=== PATIENT | female | born 1990 | race African-American/Black ===

== ENCOUNTER → 2018-03-13 | Day surgery (SDC) | payer OTHER ==
[~2018-03-13] VITALS: Ht 170.2 cm; Wt 80.3 kg
[~2018-03-13] MED LIST: *morphine SULFATE 4 MG/ML PERIprocedure ONLY ONE; ACETAMINOPHEN/HYDROcodone 325 MG/5 MG TAB PO PRN; BUPIVACAINE/EPINEPHRINE 0.5% PF 30 ML VIAL ONE; CHLORHEXIDINE GLUCONATE 2 % 1 PACK (2 CLOTHS) TOPICAL PRN; DEXAMETHASONE SOD PHOS 4 MG/ML VIAL IV ONE; DO NOT ADM ANY ANTICOAGULANT DRUGS PRN; LACTATED RINGER'S 1000 ML IV PRN; LIDOCAINE HCL 1% PF 5 ML SYRINGE OTHER ONE; METOPROLOL TARTRATE 25 MG TAB PO PRN; MIDAZOLAM HCL 2 MG/2 ML VIAL ONE; ONDANSETRON HCL 4 MG/2 ML VIAL IV ONE; POVIDONE IODINE 5% (ANTISEPSIS KIT) 4 APPLICATIONS EACH NARE PRN; PROPOFOL 200 MG/20 ML AMP IV ONE; SODIUM CHLORID 0.9% 500 ML IV PRN; SUCCINYLCHOLINE CHLORIDE 100 MG/5 ML SYRINGE IV PUSH ONE; [UNRECOGNIZED DRUG - CODE] PO
[2018-03-13 09:58] LABS: AUTOMATED NEUTROPHIL # 2.3 TH/MM3 (1.8-7.7); BASOPHIL # 0.1 TH/MM3 (0-0.2); BASOPHIL % 1.1 % (0.0-2.0); EOSINOPHIL # 0.3 TH/MM3 (0-0.4); EOSINOPHIL % 6.3 % (0.0-4.0); HEMATOCRIT 39.9 % (35.0-46.0); HEMOGLOBIN 13.1 GM/DL (11.6-15.3); LYMPH % 41.3 % (9.0-44.0); LYMPHOCYTE # 2.2 TH/MM3 (1.0-4.8); MEAN CELL VOLUME 78.9 FL (80.0-100.0); MEAN CORPUSCULAR HEMOGLOBIN 25.8 PG (27.0-34.0); MEAN CORPUSCULAR HGB CONC 32.7 % (32.0-36.0); MEAN PLATELET VOLUME 8.5 FL (7.0-11.0); MONOCYTE # 0.4 TH/MM3 (0-0.9); NEUT % 43.3 % (16.0-70.0); PLATELET COUNT 304 TH/MM3 (150-450); RED BLOOD COUNT 5.06 MIL/MM3 (4.00-5.30); WHITE BLOOD COUNT 5.3 TH/MM3 (4.0-11.0)
[2018-03-13 10:07] LABS: CALCIUM 8.9 MG/DL (8.5-10.1)
--- NOTE | 2018-03-13 13:10 | HHI.PR ---
cc: Celestine Martinez MD Immediate Post Op Note Procedure Date: Mar 13, 2018 Pre Op Diagnosis: (1) Thyroid cancer (2) Papillary thyroid carcinoma Post Op Diagnosis: (1) Status post thyroidectomy (2) Thyroid cancer (3) Papillary thyroid carcinoma Surgeon: Celestine Martinez Curtain Cleaner(s): Dr. Jadon Teixeira Procedure: Total thyroidectomy with neuro monitoring Findings: Nodule left thyroid No apparent Complications: None Specimen(s) removed: Thyroid suture marked the left superior lobe Anesthesia: General Drains: None IVF Patient to: PACU Patient Condition: Good Implant/Devices: SEE IMPLANT LOG (if applicable) Date/Time of Procedure: SEE SURGICAL CARE RECORD Celestine Martinez MD Mar 13, 2018 13:10
[2018-03-13 14:44] VITALS: BP 145/84; PULSE 70; RESP 14; TEMP 98.1; O2SAT 97
--- NOTE | 2018-03-13 15:54 | MP ---
cc: Celestine Martinez MD, Lee MD DATE OF OPERATION: 03/13/2018 PREOPERATIVE DIAGNOSIS: Thyroid malignancy, left lobe. POSTOPERATIVE DIAGNOSIS: Thyroid malignancy, left lobe. PROCEDURE: Total thyroidectomy. ANESTHESIA: General. SURGEON: Celestine Martinez MD SURGEON: Jadon Teixeira MD INDICATIONS: This is a 28-year-old female who noted a big mass in the left thyroid gland. This was biopsied, was highly suspicious for a papillary carcinoma. Plans were made for the above. PROCEDURE: The patient was taken to the operating room and placed in supine position after anesthesia. Her neck is prepped with Betadine. Timeout is done. We make a curvilinear incision about 2.5 cm above the sternal notch, dissect through the deep subcutaneous tissue, identifying the platysma muscle, which is divided using electrocautery device. We then create flaps superiorly and inferiorly. The Miladys retractor was then placed. We were able to get to the strap muscles in the midline and separate the strap muscles in a lateral direction. We then direct our attention to the right side. She has a small lobe and the middle thyroidal vein is taken down with the harmonic scalpel. The superior thyroidal vessels are taken down with the harmonic scalpel and the inferior thyroidal vessels. We are able to tease this off the surrounding tissue up to the trachea where we are able to identify the recurrent laryngeal nerve visually and with the neural monitor. The thyroid was then carefully teased off the trachea using blunt dissection and electrocautery device and the harmonic scalpel. Once we get to the midline of the trachea, we turn our attention to the left side. On the left side, there was a palpable nodule and the superior gland is easily palpable. We take the middle thyroidal vessels down with harmonic scalpel, the inferior thyroidal vessels down with the harmonic scalpel and the superior thyroidal vessels down with the harmonic scalpel. It is noted that the superior portion of her gland is somewhat high in the neck, but is easily teased away with blunt dissection. We were able to visualize the pyramidal lobe of the thyroid and this was removed as well. We then identified the left recurrent laryngeal nerve both visually and with the neuro monitor. The thyroid was then elevated up to the trachea is removed. A stitch is placed at the superior lobe on the left side for orientation for the pathologist. We irrigated. I did not feel or see any lymphadenopathy. After this was done, we then assured hemostasis. We closed the midline strap muscles with a 2-0 Vicryl and the platysma was closed with a 2-0 Vicryl in interrupted fashion. The skin was then closed with 4-0 Vicryl. Steri-Strips were applied, sterile bandage was applied. The patient tolerated the procedure well and returned to the recovery room with a fairly normal voice and good pain relief. She will be watched and possibly discharged later today. Celestine Martinez MD JDB/MARAL , 02:19 PM , 03:52 PM MTDD
== END | disposition home or self-care (01) ==
LOC: HSDC 09:08
PROVIDERS: ATTEND Surgery
DX: C73 Malignant neoplasm of thyroid gland (principal)
CPT/HCPCS: 00320; 60240; 80048; 85025; 88307; J0330; J1100; J2250; J2270; J2405; J3010; J7120